=== PATIENT | female | born 1955 | race Caucasian/White ===

== ENCOUNTER → 2019-10-05 | Outpatient (CLI) | payer MEDICARE, OTHER | LOC: RAD 09:52 | DX: M25.511 Pain in right shoulder (principal); M25.512 Pain in left shoulder ==

== ENCOUNTER 2021-08-28 19:03 | Emergency (ER) | payer MEDICARE, OTHER ==
[2021-08-28 19:36] LABS: BASO # 0.05 K/mm3 (0.02-0.10); EOS # 0.12 K/mm3 (0.04-0.40); HEMATOCRIT 38.1 % (37.0-47.0); HEMOGLOBIN 12.1 g/dL (12.5-16.0); LYMPH# 1.51 K/mm3 (1.50-4.00); MEAN CELL VOLUME 91 fl (78-100); MEAN CORPUSCULAR HEMOGLOBIN 29 pg (27-31); MEAN CORPUSCULAR HGB CONC 32 g/dL (33-37); MEAN PLATELET VOLUME 10.8 fl (7.4-10.4); MONO # 0.95 K/mm3 (0.20-0.80); NEU # 8.94 K/mm3 (1.40-6.50); PLATELET COUNT 435 K/mm3 (130-400); RED BLOOD COUNT 4.19 M/mm3 (4.10-5.30); RED CELL DISTRIBUTION WIDTH 13.7 % (11.5-14.5); WHITE BLOOD COUNT 11.6 K/mm3 (4.8-10.8)
[2021-08-28 19:48] LABS: ALBUMIN 3.9 g/dL (3.4-4.8); POTASSIUM 4.5 mmol/L (3.5-5.1)
[2021-08-28 19:49] LABS: CALCIUM 9.2 mg/dL (8.3-10.5)
[2021-08-28 19:50] LABS: TOTAL PROTEIN 8.3 g/dL (6.2-8.1)
[2021-08-28 19:52] LABS: TOTAL BILIRUBIN 0.6 mg/dL (0.2-1.2)
[2021-08-28] MEDS ORDERED: LISINOPRIL20 MG PO (19:56)
[2021-08-28] MEDS ORDERED: SENNA8.6 M1 PO (19:57)
[2021-08-28] MEDS ORDERED: ASPIRIN E.C. 8181 MG PO (19:58)
[2021-08-28] MEDS ORDERED: TYLENOL 325MG325 MG PO (19:59)
[2021-08-28] MEDS ORDERED: REFRESH DIGITA1 EACH (19:59)
[2021-08-28] MEDS ORDERED: OXYCODONE HYDROC5 M1 PO (20:01)
[2021-08-28 20:18] LABS: TROPONIN-I 0.19 ng/mL (<0.030)
[2021-08-28 20:37] LABS: D-DIMER 17.59 mg/L FEU (0.15-0.50)
[2021-08-28 23:11] VITALS: BP 126/80
== END 2021-08-28 23:13 | disposition short-term general hospital (02) ==
LOC: ED 19:03
PROVIDERS: Family Medicine
DX: S82.892A Other fracture of left lower leg, initial encounter for closed fracture (principal); S62.102A Fracture of unspecified carpal bone, left wrist, initial encounter for closed fracture; S62.101A Fracture of unspecified carpal bone, right wrist, initial encounter for closed fracture; I26.99 Other pulmonary embolism without acute cor pulmonale; V89.2XXA Person injured in unspecified motor-vehicle accident, traffic, initial encounter; Y92.410 Unspecified street and highway as the place of occurrence of the external cause
CPT/HCPCS: J1650; Q9967

== ENCOUNTER → 2021-10-22 | Outpatient (CLI) | payer MEDICARE, OTHER ==
[~2021-10-22] MED LIST: ASPIRIN E.C. 8181 MG PO; LISINOPRIL20 MG PO; OXYCODONE HYDROC5 M1 PO; REFRESH DIGITA1 EACH; SENNA8.6 M1 PO; TYLENOL 325MG325 MG PO
[2021-10-22 10:58] LABS: BASO # 0.07 K/mm3 (0.02-0.10); EOS # 0.15 K/mm3 (0.04-0.40); EOS % 2.3 % (1.0-5.0); HEMATOCRIT 41.6 % (37.0-47.0); HEMOGLOBIN 13.2 g/dL (12.5-16.0); MEAN CELL VOLUME 89 fl (78-100); MEAN CORPUSCULAR HEMOGLOBIN 28 pg (27-31); MEAN CORPUSCULAR HGB CONC 32 g/dL (33-37); MEAN PLATELET VOLUME 9.8 fl (7.4-10.4); MONO # 0.75 K/mm3 (0.20-0.80); NEU # 3.87 K/mm3 (1.40-6.50); PLATELET COUNT 248 K/mm3 (130-400); RED BLOOD COUNT 4.69 M/mm3 (4.10-5.30); RED CELL DISTRIBUTION WIDTH 14.6 % (11.5-14.5); WHITE BLOOD COUNT 6.5 K/mm3 (4.8-10.8)
[2021-10-22 11:03] LABS: ALBUMIN 4.2 g/dL (3.4-4.8); POTASSIUM 4.3 mmol/L (3.5-5.1)
[2021-10-22 11:04] LABS: CALCIUM 9.3 mg/dL (8.3-10.5)
[2021-10-22 11:07] LABS: TOTAL BILIRUBIN 0.7 mg/dL (0.2-1.2)
[2021-10-22 11:12] LABS: MAGNESIUM 2.33 mg/dL (1.60-2.60)
[2021-10-22 11:35] LABS: D-DIMER 0.6 mg/L FEU (0.15-0.50)
== END ==
LOC: LAB 10:27
PROVIDERS: Internal Medicine
DX: I26.02 Saddle embolus of pulmonary artery with acute cor pulmonale (principal); I10 Essential (primary) hypertension; L98.9 Disorder of the skin and subcutaneous tissue, unspecified